=== PATIENT | female | born 1955 | race Caucasian/White ===

== ENCOUNTER → 2024-10-05 | Outpatient (CLI) | payer MEDICARE, MEDICAID, SELFPAY ==
--- NOTE | 2024-10-05 09:00 | XR_ITS ---
Examination: Upper GI series with KUB Esophagram standard Fluoroscopy 21 spot fluoroscopic films of the esophagus and stomach Date and time: October 05, 2024 1016 hours INDICATIONS: Difficulty swallowing 5 years, history esophageal dilatation 8 years ago TECHNIQUE AND FINDINGS: Port Surveyor AP supine abdomen moderate stool throughout the colon Patient swallowed thin barium with primary peristaltic esophageal waves noted No constricting esophageal lesion Moderate intermittent gastroesophageal reflux There is no stricture at the gastroesophageal junction No sliding esophageal hernia No gastric mass deformity or ulceration Duodenal bulb expands symmetrically Duodenal sweep ligament of Treitz in jejunal loops unremarkable IMPRESSION: No esophageal stricture Moderate intermittent gastroesophageal reflux There is no stricture at the gastroesophageal junction No gastric mass deformity or ulceration Negative for active peptic disease duodenum Fluoroscopy 0.13 minutes 21 spot fluoroscopic films
== END | disposition home or self-care (01) ==
PROVIDERS: PCP Internal Medicine; Referring Provider Specialist; Visit Provider Specialist
DX: K21.9 Gastro-esophageal reflux disease without esophagitis (principal)
CPT/HCPCS: 74240; A4649

== ENCOUNTER 2024-11-15 10:25 | Day surgery (SDC) | payer MEDICARE, MEDICAID, SELFPAY ==
[2024-11-14 14:23] VITALS: BMI 49.4
[2024-11-15] VITALS (11 sets, daily range): BP systolic 127–172; BP diastolic 71–98; PULSE 76–86; RESP 13–16; TEMP 36.3–36.7; O2SAT 92–99
--- NOTE | 2024-11-15 13:06 | SUR.PHASEII ---
1304 patient arrived to recovery resting comfortably in [facility], drowsy and talking with staff, on oxygen 3L via nasal cannula, breathing unlabored, vital signs stable, denies pain and nausea, report received from Linda ROMERO
--- NOTE | 2024-11-15 13:49 | SUR.PHASEII ---
1349 Patient meets discharge criteria from recovery, awake and alert, breathing unlabored, vital signs stable, denies pain, drinking fluids; denies nausea, able to dress herself into her clothing, discharge instructions given to patient and patients son, son signed discharge instructions. Patient given all her belongings prior to discharge, transported via wheelchair and left in a private vehicle.
== END 2024-11-15 13:49 | disposition home or self-care (01) ==
PROVIDERS: PCP Internal Medicine; Referring Provider Specialist; Visit Provider Specialist
PROC: (CPT 43239; principal; 2024-11-15 11:15)
DX: K31.7 Polyp of stomach and duodenum (principal); K44.9 Diaphragmatic hernia without obstruction or gangrene; K21.00 Gastro-esophageal reflux disease with esophagitis, without bleeding; E66.01 Morbid (severe) obesity due to excess calories; K21.9 Gastro-esophageal reflux disease without esophagitis; E11.9 Type 2 diabetes mellitus without complications; K29.50 Unspecified chronic gastritis without bleeding; Z68.42 Body mass index [BMI] 45.0-49.9, adult
CPT/HCPCS: 43239; J1200; J2250; J3010; A9270